=== PATIENT | male | born 1980 | race Caucasian/White ===

== ENCOUNTER 2017-08-18 13:31 | Emergency (ER) | payer OTHER ==
[~2017-08-18] VITALS: Ht 188 cm; Wt 85.0 kg
[~2017-08-18 13:31] MED LIST: PRIL10CA PO
[2017-08-18 13:59] VITALS: BP 158/97; PULSE 98; RESP 15; TEMP 97.9; O2SAT 98
[2017-08-18] MEDS ORDERED: OMEP10CA PO (14:03)
[2017-08-18 14:36] LABS: BASOPHIL % 0.7 % (0.0-2.0); EOSINOPHIL # 0.1 TH/MM3 (0-0.4); HEMATOCRIT 41.9 % (39.0-51.0); LYMPH % 24.3 % (9.0-44.0); LYMPHOCYTE # 1.5 TH/MM3 (1.0-4.8); MEAN CELL VOLUME 85.1 FL (80.0-100.0); MEAN CORPUSCULAR HEMOGLOBIN 28.5 PG (27.0-34.0); MEAN CORPUSCULAR HGB CONC 33.5 % (32.0-36.0); MEAN PLATELET VOLUME 8.5 FL (7.0-11.0); MONO % 8.1 % (0.0-8.0); MONOCYTE # 0.5 TH/MM3 (0-0.9); NEUT % 65.9 % (16.0-70.0); PLATELET COUNT 308 TH/MM3 (150-450); RED BLOOD COUNT 4.93 MIL/MM3 (4.50-5.90); RED CELL DISTRIBUTION WIDTH 15.3 % (11.6-17.2); WHITE BLOOD COUNT 6.1 TH/MM3 (4.0-11.0)
[2017-08-18 14:58] LABS: ALBUMIN 4.1 GM/DL (3.4-5.0); AST (GOT) 19 U/L (15-37); BICARBONATE 24.7 MEQ/L (21.0-32.0); BLOOD UREA NITROGEN 18 MG/DL (7-18); CALCIUM 9.3 MG/DL (8.5-10.1); CHLORIDE 107 MEQ/L (98-107); CREATININE 1.26 MG/DL (0.60-1.30); GLOMERULAR FILTRATION RATE 65 ML/MIN (>89); SODIUM (NA) 141 MEQ/L (136-145)
--- NOTE | 2017-08-18 15:00 | PD ---
HPI Chief Complaint: Psychiatric Symptoms Time Seen by Provider: 14:04 Travel History International Travel<30 days: No Contact w/Intl Traveler<30days: No Traveled to known affect area: No History of Present Illness HPI 37-year-old male presents to the emergency department under Bustos act. According to Bustos act report ""Maykel Ross has been up for numerous days and has threatened to cause harm to his mother, specifically killing her if he had "the balls." His mother stated Maykel has not eaten in days either. Maykel claims he is eaten but admits to being awake for days claiming he is spewing to and spreading the word of God. Mood swings caring being interviewed and secured. Mother says he has been on mildly recently."" On my examination the patient says what he said was a bunch of meaningless words. He says his mom is "popping Valiums" and then turning around and telling everyone that he is a drug addict. He denies suicidal or homicidal ideations. Denies auditory or visual hallucinations. Does admit to popping "a little bit of Rhonda 3 days ago." But says his current situation has nothing to do with that. Denies IV drug use. Denies alcohol use. Denies tobacco use. Unknown duration. Unknown onset. Symptoms are moderate to severe in severity. No known aggravating or relieving factors. No primary care provider. No known allergies. Denies significant past medical history. Has no other medical complaints. Denies chest pain, shortness breath, abdominal pain, vomiting, change in urine or stool. No other modifying factors or associated signs and symptoms. PFSH Past Medical History Arthritis: Yes (RT FOOT) Cardiovascular Problems: No Diminished Hearing: No Endocrine: No Gastrointestinal Disorders: Yes GERD: Yes Genitourinary: No Immune Disorder: No Musculoskeletal: Yes Neurologic: No Psychiatric: No Reproductive: No Respiratory: No Past Surgical History Other Surgery: Yes Social History Alcohol Use: Yes (occasionally) Tobacco Use: Yes (one pack per day) Substance Use: Yes (RHONDA SAINI) Allergies-Medications (Allergen,Severity, Reaction): Coded Allergies: No Known Allergies (Verified , 11/28/15) Reported Meds & Prescriptions Reported Meds & Active Scripts Active Reported Omeprazole 10 Mg Cap 10 Mg PO DAILY Review of Systems Except as stated in HPI: all other systems reviewed are Neg Physical Exam Narrative GENERAL: Well-nourished, well-developed male patient, in no acute distress SKIN: Warm and dry. HEAD: Atraumatic. Normocephalic. EYES: Pupils equal and round. ENT: Mucosa pink and moist. NECK: Supple. Trachea midline. CARDIOVASCULAR: Regular rate and rhythm. No murmur appreciated. RESPIRATORY: No accessory muscle use. Clear to auscultation. Breath sounds equal bilaterally. GASTROINTESTINAL: Abdomen soft, non-tender, nondistended. Hepatic and splenic margins not palpable. Bowel sounds are active 4 quadrants. MUSCULOSKELETAL: No obvious deformities. No clubbing. No cyanosis. No edema. NEUROLOGICAL: Awake and alert. Oriented 3. No obvious cranial nerve deficits. Motor grossly within normal limits. Normal speech. Moves all extremities. 5/5 strength to all extremities. PSYCHIATRIC: No hallucinations. Data Data Last Documented VS Vital Signs Date Time Temp Pulse Resp B/P (MAP) Pulse Ox O2 Delivery O2 Flow Rate FiO2 08/18/17 13:59 97.9 98 15 158/97 (117) 98 Room Air Orders Orders Complete Blood Count With Diff (08/18/17 14:04) Comprehensive Metabolic Panel (08/18/17 14:04) Thyroid Stimulating Hormone (08/18/17 14:04) Psych Screen (08/18/17 14:04) Drug Screen, Random Urine (08/18/17 14:04) Alcohol (Ethanol) (08/18/17 14:04) Salicylates (Aspirin) (08/18/17 14:04) Tylenol (Acetaminophen) (08/18/17 14:04) Labs Laboratory Tests Test 08/18/17 14:25 White Blood Count 6.1 TH/MM3 Red Blood Count 4.93 MIL/MM3 Hemoglobin 14.0 GM/DL Hematocrit 41.9 % Mean Corpuscular Volume 85.1 FL Mean Corpuscular Hemoglobin 28.5 PG Mean Corpuscular Hemoglobin Concent 33.5 % Red Cell Distribution Width 15.3 % Platelet Count 308 TH/MM3 Mean Platelet Volume 8.5 FL Neutrophils (%) (Auto) 65.9 % Lymphocytes (%) (Auto) 24.3 % Monocytes (%) (Auto) 8.1 % Eosinophils (%) (Auto) 1.0 % Basophils (%) (Auto) 0.7 % Neutrophils # (Auto) 4.0 TH/MM3 Lymphocytes # (Auto) 1.5 TH/MM3 Monocytes # (Auto) 0.5 TH/MM3 Eosinophils # (Auto) 0.1 TH/MM3 Basophils # (Auto) 0.0 TH/MM3 CBC Comment DIFF FINAL Differential Comment MDM Medical Decision Making Medical Screen Exam Complete: Yes Emergency Medical Condition: Yes Medical Record Reviewed: Yes Differential Diagnosis Substance use disorder, homicidal ideation, homicidal threat, medical clearance for psychiatric admission Narrative Course Patient presents under a Bustos act. Physical examination and vital signs are essentially unremarkable. Patient has no medical complaints to report. Psych screen has been ordered. If the laboratory results are unremarkable, the patient will be medically cleared for psychiatric evaluation and disposition. Diagnosis Primary Impression: Medical clearance for psychiatric admission Condition: Stable Nasrin Post August 18, 2017 15:00
[2017-08-18 15:14] LABS: ALKALINE PHOSPHATASE 70 U/L (45-117); ALT (GPT) 29 U/L (12-78); GLUCOSE,RANDOM 89 MG/DL (74-106); TOTAL BILIRUBIN ADULT 0.8 MG/DL (0.2-1.0); TOTAL PROTEIN 8.3 GM/DL (6.4-8.2)
[2017-08-18 15:16] LABS: ACETAMINOPHEN LESS THAN 2.0 MCG/ML (10.0-30.0)
[2017-08-19 00:03] VITALS: BP 116/62; PULSE 73; RESP 18; O2SAT 98
[2017-08-19 06:32] VITALS: BP 105/69; PULSE 68; RESP 17; O2SAT 97
--- NOTE | 2017-08-19 09:42 | PD ---
Physical Exam Date Seen by Provider: August 19, 2017 Time Seen by Provider: 09:41 Data Data Last Documented VS Vital Signs Date Time Temp Pulse Resp B/P (MAP) Pulse Ox O2 Delivery O2 Flow Rate FiO2 08/19/17 06:32 68 17 105/69 (81) 97 Room Air 08/18/17 13:59 97.9 Orders Orders Complete Blood Count With Diff (08/18/17 14:04) Comprehensive Metabolic Panel (08/18/17 14:04) Thyroid Stimulating Hormone (08/18/17 14:04) Psych Screen (08/18/17 14:04) Drug Screen, Random Urine (08/18/17 14:04) Alcohol (Ethanol) (08/18/17 14:04) Salicylates (Aspirin) (08/18/17 14:04) Tylenol (Acetaminophen) (08/18/17 14:04) Diet Regular Basic (08/18/17 Dinner) Diet Regular Basic (08/19/17 Breakfast) Labs Laboratory Tests Test 08/18/17 08:15 08/18/17 14:25 Urine Opiates Screen NEG Urine Barbiturates Screen NEG Urine Amphetamines Screen POS Urine Benzodiazepines Screen NEG Urine Cocaine Screen NEG Urine Cannabinoids Screen NEG White Blood Count 6.1 TH/MM3 Red Blood Count 4.93 MIL/MM3 Hemoglobin 14.0 GM/DL Hematocrit 41.9 % Mean Corpuscular Volume 85.1 FL Mean Corpuscular Hemoglobin 28.5 PG Mean Corpuscular Hemoglobin Concent 33.5 % Red Cell Distribution Width 15.3 % Platelet Count 308 TH/MM3 Mean Platelet Volume 8.5 FL Neutrophils (%) (Auto) 65.9 % Lymphocytes (%) (Auto) 24.3 % Monocytes (%) (Auto) 8.1 % Eosinophils (%) (Auto) 1.0 % Basophils (%) (Auto) 0.7 % Neutrophils # (Auto) 4.0 TH/MM3 Lymphocytes # (Auto) 1.5 TH/MM3 Monocytes # (Auto) 0.5 TH/MM3 Eosinophils # (Auto) 0.1 TH/MM3 Basophils # (Auto) 0.0 TH/MM3 CBC Comment DIFF FINAL Differential Comment Blood Urea Nitrogen 18 MG/DL Creatinine 1.26 MG/DL Random Glucose 89 MG/DL Total Protein 8.3 GM/DL Albumin 4.1 GM/DL Calcium Level 9.3 MG/DL Alkaline Phosphatase 70 U/L Aspartate Amino Transf (AST/SGOT) 19 U/L Alanine Aminotransferase (ALT/SGPT) 29 U/L Total Bilirubin 0.8 MG/DL Sodium Level 141 MEQ/L Potassium Level 3.7 MEQ/L Chloride Level 107 MEQ/L Carbon Dioxide Level 24.7 MEQ/L Anion Gap 9 MEQ/L Estimat Glomerular Filtration Rate 65 ML/MIN Thyroid Stimulating Hormone 3rd Gen 1.940 uIU/ML Salicylates Level LESS THAN 1.7 MG/DL Acetaminophen Level LESS THAN 2.0 MCG/ML Ethyl Alcohol Level LESS THAN 3 MG/DL MDM Supervised Visit with MARISSA: No Narrative Course 37-year-old male brought into the ED under Bustos act. He was initially seen by BRIE Myers and medically cleared. He was then seen by Dr. Love, psychiatry, and Bustos act was lifted. Plan is for patient to follow up with [facility] for substance abuse. The patient is stable and discharged home. Diagnosis Primary Impression: Medical clearance for psychiatric admission Additional Impression: Polysubstance dependence Referrals: [facility] Additional Instruction: Follow up with [facility] for outpatient treatment of substance abuse. Return to the ED for any urgent/ emergent medical concern. Disposition: DISCHARGE HOME Condition: Stable Maria G Castro August 19, 2017 09:42
--- NOTE | 2017-08-19 12:49 | PD.PSY.CON ---
Provisional Diagnosis Admission Date [place] I. Substance-induced mood disorder, hallucinogens use disorder History of Present Illness Service Psychiatry Consult Requested By ER Reason for Consult Psychiatry Primary Care Physician No Primary Care Physician HPI Patient was seen this morning at 7:30 AM The patient is 37-year-old man, single, domiciled with his mother and father in [place], unemployed, with psychiatric history of polysubstance dependence including hallucinogens, amphetamines, cocaine, marijuana, no previous psychiatric hospitalizations, no previous suicide attempts, no significant medical history, who presents to the emergency department under centrose act. According to Bustos act report ""Maykel Ross has been up for numerous days and has threatened to cause harm to his mother, specifically killing her if he had "the balls." His mother stated Maykel has not eaten in days either. Maykel claims he is eaten but admits to being awake for days claiming he is spewing to and spreading the word of God. Mood swings caring being interviewed and secured. Mother says he has been on mildly recently."" On my examination the patient says what he said was a bunch of meaningless words. He says his mom is "popping Valiums" and then turning around and telling everyone that he is a drug addict. He denies suicidal or homicidal ideations. Denies auditory or visual hallucinations. Does admit to popping "a little bit of Jeanne 3 days ago." But says his current situation has nothing to do with that. Denies IV drug use. Denies alcohol use. Denies tobacco use. Unknown duration. Unknown onset. Symptoms are moderate to severe in severity. No known aggravating or relieving factors. No primary care provider. No known allergies. Denies significant past medical history. Has no other medical complaints. Denies chest pain, shortness breath, abdominal pain, vomiting, change in urine or stool. No other modifying factors or associated signs and symptoms. Past Family Social History Coded Allergies: No Known Allergies (Verified , 11/28/15) Reported Medications Omeprazole (Omeprazole) 10 Mg Cap, 10 MG PO DAILY, #30 CAP 0 Refills 08/18/17 Physical Exam Vital Signs Vital Signs Date Time Temp Pulse Resp B/P (MAP) Pulse Ox O2 Delivery O2 Flow Rate FiO2 08/19/17 11:02 08/19/17 06:32 68 17 97 Room Air 08/18/17 13:59 97.9 Lab Results Test 08/18/17 14:25 White Blood Count 6.1 TH/MM3 Red Blood Count 4.93 MIL/MM3 Hemoglobin 14.0 GM/DL Hematocrit 41.9 % Mean Corpuscular Volume 85.1 FL Mean Corpuscular Hemoglobin 28.5 PG Mean Corpuscular Hemoglobin Concent 33.5 % Red Cell Distribution Width 15.3 % Platelet Count 308 TH/MM3 Mean Platelet Volume 8.5 FL Neutrophils (%) (Auto) 65.9 % Lymphocytes (%) (Auto) 24.3 % Monocytes (%) (Auto) 8.1 % Eosinophils (%) (Auto) 1.0 % Basophils (%) (Auto) 0.7 % Neutrophils # (Auto) 4.0 TH/MM3 Lymphocytes # (Auto) 1.5 TH/MM3 Monocytes # (Auto) 0.5 TH/MM3 Eosinophils # (Auto) 0.1 TH/MM3 Basophils # (Auto) 0.0 TH/MM3 CBC Comment DIFF FINAL Differential Comment Blood Urea Nitrogen 18 MG/DL Creatinine 1.26 MG/DL Random Glucose 89 MG/DL Total Protein 8.3 GM/DL Albumin 4.1 GM/DL Calcium Level 9.3 MG/DL Alkaline Phosphatase 70 U/L Aspartate Amino Transf (AST/SGOT) 19 U/L Alanine Aminotransferase (ALT/SGPT) 29 U/L Total Bilirubin 0.8 MG/DL Sodium Level 141 MEQ/L Potassium Level 3.7 MEQ/L Chloride Level 107 MEQ/L Carbon Dioxide Level 24.7 MEQ/L Anion Gap 9 MEQ/L Estimat Glomerular Filtration Rate 65 ML/MIN Thyroid Stimulating Hormone 3rd Gen 1.940 uIU/ML Salicylates Level LESS THAN 1.7 MG/DL Acetaminophen Level LESS THAN 2.0 MCG/ML Ethyl Alcohol Level LESS THAN 3 MG/DL Mental Status Examination Appearance: Appropriate Consciousness: Alert Orientation: x4 Motor Activity: Normal gait Speech: Unremarkable Language: Adequate Fund of Knowledge: Adequate Attention and Concentration: Adequate Memory: Unremarkable Mood: Appropriate Affect: Appropriate Thought Process & Associations: Intact Thought Content: Appropriate Hallucination Type: None Delusion Type: None Suicidal Ideation: No Suicidal Plan: No Suicidal Intention: No Homicidal Ideation: No Homicidal Plan: No Homicidal Intention: No Insight: Adequate Judgment: Adequate Assessment & Plan Problem List: (1) Substance induced mood disorder ICD Codes: F19.94 - Other psychoactive substance use, unspecified with psychoactive substance-induced mood disorder Assessment & Plan: Psychiatric evaluation today the patient is calm, cooperative, logical, coherent and relevant. Clinically sober. He denies symptomatology of depression, anxiety, agata and psychosis. He denies suicidal and homicidal ideation, he denies visual and auditory hallucinations. Recent aggressive behavior with his mother is most probably the result of substance intoxication, the patient admitted using Jeanne, but also due to character structure. He does not meet criteria for involuntary psychiatric admission. Brief supportive psychotherapy provided. Assessment & Plan Estimated LOS: Curtis Sommer MD August 19, 2017 12:49
== END 2017-08-19 11:31 | disposition home or self-care (01) ==
LOC: NEPD 13:31 → NEPJ 08-19 11:31
DX: F19.20 Other psychoactive substance dependence, uncomplicated (principal); K21.9 Gastro-esophageal reflux disease without esophagitis; Z79.899 Other long term (current) drug therapy
CPT/HCPCS: 80053; 80307; 84443; 85025; 99284